=== PATIENT | female | born 1970 | race Caucasian/White ===

== ENCOUNTER 2017-02-25 09:19 | Day surgery (SDC) | payer OTHER ==
[2017-02-23 16:29] VITALS: BMI 28.1
[2017-02-25 09:52] VITALS: RESP 16; TEMP 97.4
[2017-02-25] MEDS: LACTATED RINGERS 1,000 ML IV SCH ×2 (10:01→10:06)
[2017-02-25] MEDS ORDERED: LIDOCAINE 1% 20 ML VIAL (10MG/ML) FOR IV START INTRADERMA ONE (10:02)
[2017-02-25] MEDS ORDERED: GLYCOPYRROLATE 0.2 MG/ML 2 ML VIAL ONE (10:10)
[2017-02-25] MEDS ORDERED: ONDANSETRON 4 MG/2 ML VIAL ONE (10:10)
[2017-02-25] MEDS ORDERED: LIDOCAINE 1% INJ 10MG/ML (20 ML MDV) ONE (10:10)
[2017-02-25] MEDS ORDERED: MIDAZOLAM 2 MG/2 ML VIAL ONE (10:10)
[2017-02-25] MEDS ORDERED: PROPOFOL 10 MG/ML 20 ML VIAL IV ONE (10:10)
--- NOTE | 2017-02-25 10:15 | P.GSHP ---
History of Present Illness H&P Date: 02/25/17 Chief Complaint: Right upper quadrant epigastric pain This a 46-year-old female for from Dr. Bailey ridley. Patient rents today for EGD. She's had complaints of epigastric and right upper quadrant dull pain. She states she has pain approximately 3 hours after she eats. Past Medical History Additional Past Medical History / Comment(s): MIGRAINE HEADACHE , NAUSEA AND VOMITING AND ABDOMINAL PAIN History of Any Multi-Drug Resistant Organisms: None Reported Additional Past Surgical History / Comment(s): LEFT MIDDLE [id number] Past Anesthesia/Blood Transfusion Reactions: No Reported Reaction Smoking Status: Never smoker - Past Family History Mother Family Medical History: No Reported History Medications and Allergies Home Medications Medication Instructions Recorded Confirmed Type Acetaminophen Tab [Tylenol Tab] 650 mg PO Q4H PRN 02/23/17 02/25/17 History Pantoprazole Sodium [Protonix] 40 mg PO DAILY 02/23/17 02/25/17 History Allergies Allergy/AdvReac Type Severity Reaction Status Date / Time morphine Allergy DEPRESSION- Verified 02/23/17 16:15 SUICIDAL prochlorperazine Allergy Hallucinati Verified 02/23/17 16:15 [From Compazine] ons Surgical - Exam Vital Signs Temp Pulse Resp BP Pulse Ox 97.4 F L 80 16 142/95 97 02/25/17 09:51 02/25/17 09:51 02/25/17 09:51 02/25/17 09:51 02/25/17 09:51 - General well developed, no distress - Eyes PERRL - ENT normal pinna - Neck no masses - Respiratory normal expansion - Cardiovascular Rhythm: regular - Abdomen Mild tenderness epigastric Abdomen: soft Assessment and Plan Plan: Epigastric and right upper quadrant pain. We'll perform EGD.
--- NOTE | 2017-02-25 10:23 | P.OP ---
Date of Procedure: 02/25/17 Preoperative Diagnosis: Gastritis Postoperative Diagnosis: Antral gastritis Small sliding hiatal hernia Mild esophagitis Procedure(s) Performed: EGD Implants: Anesthesia: MAC Surgeon: Herrera Cordero Pathology: other (Antrum, esophagus) Condition: stable Disposition: PACU Indications for Procedure: Operative Findings: Description of Procedure: The patient's placed on the endoscopy table in the lateral position. She received IV sedation. The gastroscope placed oropharynx and passed into the esophagus and into the stomach. The scope was then placed through the pylorus. The first and second portion of the duodenum appeared normal. Scope was then brought back the antrum and this appeared mildly inflamed. A biopsies performed. The scope was then retroflexed and the remainder of the stomach appeared normal. There was a small sliding hiatal hernia. The distal esophagus appeared minimally inflamed a biopsies performed. The proximal esophagus appeared normal. Scope was withdrawn for patient.
[2017-02-25] MEDS ORDERED: PROMETHAZINE INJ 25 MG/ML 1 ML VIAL IVPB ONE (10:49)
[2017-02-25 11:57] VITALS: BP 154/87; PULSE 85
== END 2017-02-25 13:07 | disposition home or self-care (01) ==
LOC: ORWHC2ENDO 09:19
PROVIDERS: ATTEND Surgery
DX: K29.50 Unspecified chronic gastritis without bleeding (principal); K20.9 Esophagitis, unspecified; K44.9 Diaphragmatic hernia without obstruction or gangrene; G43.109 Migraine with aura, not intractable, without status migrainosus; Z79.899 Other long term (current) drug therapy; Z88.5 Allergy status to narcotic agent; Z88.8 Allergy status to other drugs, medicaments and biological substances
CPT/HCPCS: 81025; 88305; 88342; 43239; J2250; J2550; J2405; J2001; J2704

== ENCOUNTER → 2018-07-17 | Outpatient (CLI) | payer OTHER ==
[2018-07-17 09:35] LABS: Basophils % (A) 1 %; Eosinophils # (A) 0.1 k/uL (0-0.7); Eosinophils % (A) 3 %; HCT 41.1 % (34.0-46.0); HGB 14.2 gm/dL (11.4-16.0); Lymphocytes # (A) 1.6 k/uL (1.0-4.8); Lymphocytes % (A) 29 %; MCH 29.7 pg (25.0-35.0); MCHC 34.6 g/dL (31.0-37.0); Mean Platelet Volume 6.9; Monocytes # (A) 0.4 k/uL (0-1.0); Monocytes % (A) 7 %; Neutrophils # (A) 3.3 k/uL (1.3-7.7); Neutrophils % (A) 60 %; Platelet Count 264 k/uL (150-450); RBC 4.78 m/uL (3.80-5.40); WBC 5.5 k/uL (3.8-10.6)
== END ==
LOC: LABWHC1 08:48 → LABPAT 08:48
PROVIDERS: ATTEND Obstetrics & Gynecology
DX: Z01.812 Encounter for preprocedural laboratory examination (principal); D26.0 Other benign neoplasm of cervix uteri
CPT/HCPCS: 36415; 85025; 86850; 86900; 86901

== ENCOUNTER 2018-07-27 08:07 | Day surgery (SDC) | payer OTHER ==
[2018-07-19 16:15] VITALS: BMI 25.0
[~2018-07-27 08:07] MED LIST: DEXAMETHASONE SOD PHOSPHATE 10 MG/ML 1 ML VIAL IV ONE; LACTATED RINGERS 1,000 ML IV SCH; LIDOCAINE 1% 20 ML VIAL (10MG/ML) FOR IV START INTRADERMA PRN; MIDAZOLAM (PF) 2 MG/2 ML VIAL IV PRN; SCOPOLAMINE 1.5MG/72HR PATCH TRANSDERM ONE; ceFAZolin IN SWFI 2 GM/20 ML SYRINGE IVP ONE
[2018-07-27] MEDS: ONDANSETRON 4 MG/2 ML VIAL IVP ONE ×2 (09:02→10:43)
[2018-07-27] MEDS ORDERED: fentaNYL (PF) 50 MCG/ML 2 ML AMP ONE (09:58)
[2018-07-27] MEDS ORDERED: PROPOFOL 10 MG/ML 20 ML VIAL IV ONE (09:58)
[2018-07-27] MEDS ORDERED: MIDAZOLAM 2 MG/2 ML VIAL ONE (09:58)
[2018-07-27] MEDS ORDERED: FERRIC SUBSULFATE (MONSELS) JAR TOPICAL ONE (10:23)
--- NOTE | 2018-07-27 10:28 | P.OP ---
Date of Procedure: 07/27/18 Preoperative Diagnosis: 6 cm pedunculated cervical fibroid Postoperative Diagnosis: Same Procedure(s) Performed: Cervical myomectomy Anesthesia: spinal Surgeon: Yaquelin Brown Estimated Blood Loss (ml): 5 IV fluids (ml): 700 Urine output (ml): 300 Pathology: other (Cervical fibroid) Condition: stable Disposition: PACU Operative Findings: Large pedunculated cervical myoma. Description of Procedure: Patient is brought to the operating suite where a spinal analgesia is administered without difficulty. She's placed in the dorsal lithotomy position. Urine hCG is negative. No antibiotics are deemed necessary. The cervix, vagina, perineal bodies are all prepped and draped in usual sterile fashion. The appropriate timeout is performed to assure proper patient and procedural identification. Bladder is drained for 300 mL of clear yellow urine. Weighted speculum was placed into the vagina. Right angle retractors used at 12:00. The large myoma is grasped with a single-tooth tenaculum. It is brought in to the introitus with a pulling maneuver. The base is palpated. Exposure by surgical team is excellent. The base is palpated with my index finger, and a De León scissor is used to remove the fibroid at its base which is approximately 2 cm in diameter. The myoma is sent to pathology for evaluation. The base is cauterized with electrocautery for excellent hemostasis. Monsel solution is then used as well. The cervix is clean and dry at the end of our procedure. All sponge needle and enhancement counts are correct. Patient is brought back to recovery room in excellent condition with stable vital signs including blood pressure 114/57, pulse 91, 98% O2 saturation. Patient will follow-up with me in the office in 2 weeks.
[2018-07-27 10:40] VITALS: TEMP 97.9
[2018-07-27] MEDS ORDERED: diphenhydrAMINE 50 MG/ML 1 ML VIAL IVP ONE (10:58)
[2018-07-27 11:54] VITALS: RESP 16
[2018-07-27] MEDS ORDERED: KETOROLAC 30 MG/ML 1 ML VIAL IVP ONE (14:30)
[2018-07-27 15:28] VITALS: BP 133/81; PULSE 98
== END 2018-07-27 15:55 | disposition home or self-care (01) ==
LOC: OR 08:07
PROVIDERS: ATTEND Obstetrics & Gynecology
DX: D25.9 Leiomyoma of uterus, unspecified (principal); K58.9 Irritable bowel syndrome, unspecified; G43.909 Migraine, unspecified, not intractable, without status migrainosus; F41.9 Anxiety disorder, unspecified; Z79.1 Long term (current) use of non-steroidal anti-inflammatories (NSAID); Z79.899 Other long term (current) drug therapy; Z88.5 Allergy status to narcotic agent; Z88.8 Allergy status to other drugs, medicaments and biological substances
CPT/HCPCS: 88305; 58145; J2250; J1200; J1100; J2405; J3010; J1885; J2704; 86850; 86900; 86901

== ENCOUNTER → 2022-10-20 | Outpatient (CLI) | payer OTHER ==
--- NOTE | 2022-10-20 12:05 | NM ---
EXAMINATION TYPE: NM hepatobiliary w EF DATE OF EXAM: 10/20/2022 COMPARISON: NONE HISTORY: R10.11 TECHNIQUE: After the intravenous administration of 4.9 mCi Tc 99m Mebrofenin hepatobiliary scintigrap hy is performed. Immediate images post injection. FINDINGS: There is satisfactory initial accumulation of tracer by the liver. The gallbladder is visualized wit hin 18 minutes. The small bowel activity is noted within 16 minutes. At one hour 8 ounces of oral e nsure plus is given to mimic CCK and gallbladder ejection fraction is calculated at 73 %, in the norm al range. Therefore there is no scintigraphic evidence of cystic or common bile duct obstruction to suggest acute cholecystitis or gallbladder dyskinesia. IMPRESSION: Exam is within normal limits.
== END | disposition home or self-care (01) ==
LOC: RADNMMAIN 06:59
PROVIDERS: ATTEND Internal Medicine Gastroenterology
DX: R10.11 Right upper quadrant pain (principal)
CPT/HCPCS: 78226; A9537

== ENCOUNTER → 2023-08-29 | Outpatient (CLI) | payer OTHER ==
[2023-08-30 07:10] LABS: Basophils # (A) 0.03 X 10*3/uL (0.00-0.10); Basophils % (A) 0.4 %; Eosinophils # (A) 0.07 X 10*3/uL (0.04-0.35); Eosinophils % (A) 0.9 %; HCT 43.5 % (37.2-46.3); HGB 14.4 g/dL (12.0-15.0); Lymphocytes # (A) 1.86 X 10*3/uL (0.90-5.00); Lymphocytes % (A) 24.5 %; MCH 29.4 pg (27.0-32.0); MCHC 33.1 g/dL (32.0-37.0); MCV 88.8 FL (80.0-97.0); Mean Platelet Volume 10.8 FL (9.5-12.2); Monocytes # (A) 0.59 X 10*3/uL (0.20-1.00); Monocytes % (A) 7.8 %; NRBC Per 100 WBC 0 X 10*3/uL (0.00-0.01); Neutrophils # (A) 5.03 X 10*3/uL (1.80-7.70); Neutrophils % (A) 66.1 %; Platelet Count 309 X 10*3/uL (140-440); RDW 12.7 % (11.5-14.5)
== END | disposition home or self-care (01) ==
LOC: LABPAT 09:14
PROVIDERS: ATTEND Obstetrics & Gynecology
DX: Z01.812 Encounter for preprocedural laboratory examination (principal); N95.0 Postmenopausal bleeding; N84.0 Polyp of corpus uteri
CPT/HCPCS: 85025

== ENCOUNTER 2023-12-03 13:20 | Emergency (ER) | payer OTHER ==
[2023-12-03] MEDS: fentaNYL (PF) 50 MCG/ML 2 ML AMP IVP PRN (13:26)
[2023-12-03 13:31] LABS: Glucose,Whole Blood 177 mg/dL (70-110)
[2023-12-03 13:45] LABS: Basophils # (A) 0.1 k/uL (0-0.2); Basophils % (A) 0 %; Eosinophils # (A) 0.1 k/uL (0-0.7); Eosinophils % (A) 0 %; HCT 46.2 % (34.0-46.0); HGB 15.4 gm/dL (11.4-16.0); Lymphocytes # (A) 3.3 k/uL (1.0-4.8); Lymphocytes % (A) 16 %; MCH 29.2 pg (25.0-35.0); MCHC 33.5 g/dL (31.0-37.0); MCV 87.4 fL (80.0-100.0); Mean Platelet Volume 7.6; Monocytes # (A) 0.5 k/uL (0-1.0); Monocytes % (A) 3 %; Neutrophils # (A) 16.9 k/uL (1.3-7.7); Neutrophils % (A) 80 %; Platelet Count 386 k/uL (150-450); RBC 5.28 m/uL (3.80-5.40); RDW 12.5 % (11.5-15.5); WBC 21.1 k/uL (3.8-10.6)
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
[2023-12-03] MEDS: fentaNYL (PF) 50 MCG/ML 2 ML AMP IVP STA (14:00)
[2023-12-03 14:04] LABS: ALT 36 U/L (4-34); AST 55 U/L (14-36); African American GFR (CKD) 54 (>60 ml/min/1.73 sqM); Albumin 4.4 g/dL (3.5-5.0); Alcohol <10 mg/dL; Alkaline Phosphatase 103 U/L (38-126); Anion Gap 12 mmol/L; Blood Urea Nitrogen 15 mg/dL (7-17); Calcium 9.7 mg/dL (8.4-10.2); Carbon Dioxide 22 mmol/L (22-30); Chloride 106 mmol/L (98-107); Glucose 180 mg/dL (74-99); Non-African American GFR(CKD) 47 (>60 ml/min/1.73 sqM); Potassium 4.5 mmol/L (3.5-5.1); Sodium 140 mmol/L (137-145); Total Bilirubin 0.6 mg/dL (0.2-1.3); Total Protein 7.4 g/dL (6.3-8.2)
[2023-12-03 14:06] LABS: INR 0.9 (<1.2); Prothrombin Time 10.2 sec (10.0-12.5)
[2023-12-03 14:08] LABS: Partial Thromboplastin Time 21.1 sec (22.0-30.0)
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
[2023-12-03] MEDS: DIPH,PERTUS(ACELL)TETVAC-LF 0.5 ML VIAL IM ONE (14:58)
[2023-12-03] MEDS: fentaNYL (PF) 50 MCG/ML 2 ML AMP IV STA (14:59)
[2023-12-03 15:04] VITALS: TEMP 98
[2023-12-03 15:59] VITALS: BP 124/67; PULSE 113; RESP 20
== END 2023-12-03 15:00 | disposition other institution (70) ==
LOC: EC 13:20
DX: S22.32XA Fracture of one rib, left side, initial encounter for closed fracture (principal); S20.212A Contusion of left front wall of thorax, initial encounter; Z23 Encounter for immunization; Z88.5 Allergy status to narcotic agent; Z88.8 Allergy status to other drugs, medicaments and biological substances; V43.52XA Car driver injured in collision with other type car in traffic accident, initial encounter; Y92.410 Unspecified street and highway as the place of occurrence of the external cause
CPT/HCPCS: 36415; 93005; 86900; 86901; 80053; 84484; 85025; 85610; 85730; 86850; 80320; 72170; 71045; 72125; 70450; 71260; 74177; 90715; 99291; 90471; 96374; 96376 ×2; J3010; Q9967

== ENCOUNTER → 2024-02-23 | Outpatient (CLI) | payer OTHER | END | disposition home or self-care (01) | LOC: LABPRL 11:09 | PROVIDERS: ATTEND Family Medicine | DX: L02.91 Cutaneous abscess, unspecified (principal); R52 Pain, unspecified | CPT/HCPCS: 87070; 87205 ==

== ENCOUNTER → 2024-02-24 | Outpatient (CLI) | payer OTHER | END | disposition home or self-care (01) | LOC: LABPRL 03:55 | PROVIDERS: ATTEND Family Medicine | DX: N39.0 Urinary tract infection, site not specified (principal); Z16.12 Extended spectrum beta lactamase (ESBL) resistance | CPT/HCPCS: 82306; 83036 ==

== ENCOUNTER → 2024-04-22 | Outpatient (CLI) | payer OTHER ==
--- NOTE | 2024-04-22 15:53 | CT ---
EXAMINATION TYPE: CT pelvis wo/w con CT DLP: 1854 mGycm, Automated exposure control for dose reduction was used. DATE OF EXAM: 04/22/2024 11:04 AM COMPARISON: CT chest abdomen pelvis 12/03/2023 CLINICAL INDICATION:Female, 54 years old with history of S32.81 PELVIC FRACTURES K65.1 ABSCESS; Pelvi c fractures, RT side abscess in urostomy, bladder rupture. TECHNIQUE: Standard CT of the pelvis before and after the uneventful administration of 100 mL Isovu e 300 intravenously. Oral contrast was administered. Coronal and sagittal reformats were performed. FINDINGS: KIDNEYS AND URETERS: Visualized portions of the kidney appear unremarkable without hydronephrosis. Mi ld prominence of both ureters with the urostomy identified. BLADDER: Urinary bladder is surgically absent with diverting right lower anterior abdomen urostomy. REPRODUCTIVE: Unremarkable. BOWEL: Enteric contrast reaches the hepatic flexure. Mild colonic stool burden most prominently invol ving the transverse colon.No focal bowel wall thickening or surrounding inflammatory changes. Few dis ed scattered colonic diverticulosis. Right lower quadrant urostomy. No evidence of bowel obstruction . PERITONEUM: No evidence of pneumoperitoneum or free fluid. No discrete abscess along the urostomy the re is some surrounding stranding changes identified. VASCULATURE: No visualized aortic aneurysm the distal abdominal aorta. IVC filter partially visualize d. MUSCULOSKELETAL: No acute osseous abnormalities. Postsurgical changes with bilateral transverse orien omar SI joint screws. Redemonstration of left anterior hemisacral fracture with fracture line still vi sible and some subchondral sclerosis. Additional postsurgical changes from bilateral superior pubic r ami fractures with plating identified. Displaced right inferior pubic ramus fracture with some calcif ication approximately 1.6 cm of displacement. Healing left inferior pubic ramus fracture with callus formation. Left superior pubic ramus fracture line is still visible with approximately 7 mm of displa cement. Additional left pubic bone fracture redemonstrated with approximately 1.7 cm of displacement. Redemonstration of comminuted displaced fractures of the bilateral anterior acetabulum. 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 Remote healed right L3 transverse proc ess fracture. Remote left L2 transverse process fracture. LYMPH NODES: No gross evidence for lymphadenopathy. SOFT TISSUE/ABDOMINAL WALL: Midline postsurgical changes of the abdominal wall with scarring demonstr ated. No organized fluid collection. Left lateral hip overlying the greater trochanter is a fluid col lection with peripheral wall measuring 4.0 x 1.6 x 8.1 cm (AP, TV, CC dimensions) (series 3, image 46 and series 4, measures 34). IMPRESSION: 1. Postsurgical changes from cystectomy with urostomy. There is some surrounding stranding around th e urostomy within the abdominal wall. No surrounding organized fluid collections. May be postsurgical versus inflammatory/infectious changes. 2. Postsurgical changes from bilateral SI joint fixation with anterior pelvic plate fixation. Multipl e remote fractures of the pelvis redemonstrated with some demonstrating continued displacement and ot hers demonstrating some healing changes as described above. 3. Left lateral hip fluid collection over the greater trochanter measuring 4.0 x 1.6 x 8.1 cm. May re present a Pereira Kylah lesion in the setting of prior significant trauma. [facility], , 04/22/2024 3:50 PM
== END | disposition home or self-care (01) ==
LOC: RADCTMAIN 08:08
PROVIDERS: ATTEND Orthopaedic Surgery
DX: K65.1 Peritoneal abscess
CPT/HCPCS: 72194